=== PATIENT | male | born 1995 | race African-American/Black ===

== ENCOUNTER 2020-02-12 12:51 | Emergency (ER) | payer OTHER, SELFPAY ==
[2020-02-12 13:07] LABS: #Basophils 0.1 thou/uL (0.0-0.2); #Eosinphils 0.1 thou/uL (0.0-0.7); #Lymphocytes 3.5 thou/uL (1.20-3.40); #Monocytes 0.7 thou/uL (0.11-0.59); #Neutrophils 3.7 thou/uL (1.40-6.50); %Basophils 1.4 % (0.0-1.0); %Eosinophils 1.2 % (0.0-10.0); %Lymphocytes 42.9 % (21.0-51.0); %Monocytes 9.1 % (0.0-10.0); %Neutrophils 45.4 % (42.0-75.0); Hemoglobin 15.1 g/dL (14.0-18.0); Mean Corpuscular HGB CONC 33.3 g/dL (32.0-36.0); Mean Corpuscular Hemoglobin 28.7 pg (27.0-31.0); Mean Corpuscular Volume 86.3 fL (78.0-98.0); Platelet Count 258 thou/uL (130-400); RBC Distribution Width 12.1 % (11.5-14.5); Red Blood Cell (RBC) Count 5.25 mill/uL (4.70-6.10); White Blood Cell (WBC) Count 8.1 thou/uL (4.8-10.8)
--- NOTE | 2020-02-12 13:13 | RAD ---
Supine frontal chest radiograph: 02/12/2020 COMPARISON: None HISTORY: Injury, trauma, pain FINDINGS: Supine imaging is provided, limiting assessment for pneumothorax and pleural fluid. Heart a nd mediastinal contours appear grossly unremarkable. IMPRESSION: No radiographic evidence of acute cardiopulmonary disease.
--- NOTE | 2020-02-12 13:23 | CT ---
CT BRAIN NONCONTRAST: DATE: 02/12/2020 HISTORY: 24-year-old male status post acute blunt trauma to the head FINDINGS: There is no evidence of acute intra-axial or extra-axial hemorrhage. There is no midline shift or any other mass effect. There is no extra-axial fluid collection. The ventricles are normal in size and configuration. The tympanomastoid cavities, and the upper portions of the paranasal sinuses included in these images, are grossly clear. Calvarium is intact. IMPRESSION: Normal.
--- NOTE | 2020-02-12 13:26 | CT ---
CT CERVICAL SPINE NONCONTRAST: DATE: 02/12/2020 HISTORY: cervical trauma: 24-year-old male with acute traumatic paralysis after blunt trauma. FINDINGS: Alignment is normal. Vertebral body heights are maintained. No prevertebral soft tissue swelling. No perched or jumped facets. No significant degenerative disc disease or significant degenerative facet disease identified. No fracture or any other major osseous abnormality. There is a tiny focal c alcification of the left ligamentum flavum at C7-T1, which should not be mistaken for an avulsion or chip fracture. IMPRESSION: Essentially normal.
--- NOTE | 2020-02-12 13:28 | CT ---
CT thoracic spine noncontrast: 02/12/2020 HISTORY: 24-year-old male with acute traumatic paralysis after blunt trauma. FINDINGS: Vertebral body heights are maintained. No fracture or any other osseous abnormality. No central spina l canal stenosis. No pleural effusion. Perivertebral spaces are unremarkable. IMPRESSION: Normal
--- NOTE | 2020-02-12 13:33 | CT ---
CT LUMBAR SPINE noncontrast: DATE: 02/12/2020 HISTORY: 24-year-old male with acute traumatic paralysis after blunt trauma Dr. Quintero gave verbal report of CTs of brain, C-spine, T-spine, and L-spine, for this level 2 trauma ca se to nurse Olive Smith, who was instructed to notify Dr. Wilson of the ER 02/12/2020 FINDINGS: There are 5 lumbar-type vertebrae. Alignment is normal. Vertebral body heights and disc spaces are ma intained. There is no evidence of fracture, significant osteophytes, pars interarticularis defect, or any other focal osseous abnormality. No central spinal canal stenosis or significant neural forami nal stenosis identified at any level. No large disc herniation. Perivertebral spaces are normal. Stomach is filled with material and is distended, only partially visualized. IMPRESSION: 1. Normal lumbar spine. 2. Gastric distention
[2020-02-12 13:35] LABS: ALT (SGPT) 20 U/L (8-55); AST (SGOT) 27 U/L (5-34); Albumin 4.3 g/dL (3.5-5.0); Alcohol Less than 10 mg/dL (Less than 10); Alkaline Phosphatase 79 U/L (40-110); Anion Gap 16 mmol/L (10-20); BUN (Urea Nitrogen) 17 mg/dL (8.9-20.6); Bilirubin, Total 0.6 mg/dL (0.2-1.2); Calc. Creatinine Clearance 0 mL/min (70-130); Calcium 9.4 mg/dL (7.8-10.44); Carbon Dioxide 23 mmol/L (22-29); Chloride 103 mmol/L (98-107); Globulin 3.1 g/dL (2.4-3.5); Glucose 77 mg/dL (70-105); Potassium 4.1 mmol/L (3.5-5.1); Protein, Total 7.4 g/dL (6.0-8.3); Sodium 138 mmol/L (136-145)
--- NOTE | 2020-02-12 16:18 | MRI ---
Exam: MRI cervical spine without contrast HISTORY: Trauma. Similar fell on patient. Acute posttraumatic paralysis.. COMPARISON: None Correlation: CT cervical spine 02/12/2020 FINDINGS: Straightening of normal cervical lordosis is presumed to be due to patient position. There is no sig nificant STIR hyperintensity to suggest ligamentous injury or vertebral body edema Visualized brain parenchyma, cervicomedullary junction, cervical cord and the upper thoracic cord hav e a normal size and signal intensity. C2-C3: Adequate disc hydration. No posterior disc abnormality. No significant central canal stenosis or significant neural foraminal narrowing C3-C4: Adequate disc hydration. No posterior disc abnormality. No significant central canal stenosis or significant neural foraminal narrowing C4-C5: Adequate disc hydration. No posterior disc abnormality. No significant central canal stenosis or significant neural foraminal narrowing C5-C6: Adequate disc hydration. No posterior disc abnormality. No significant central canal stenosis or significant neural foraminal narrowing. There is a 0.1 cm hyperintensity along the central aspect of the cord, compatible with a small syrinx. No cord expansion or cord C6-C7: Adequate disc hydration. No significant central canal stenosis or significant neural foraminal narrowing. Central syrinx is noted. C7-T1: Adequate disc hydration. No significant central canal stenosis or significant neural foraminal narrowing. Syrinx is not as evident. IMPRESSION: 1. No evidence of fracture or ligamentous injury 2. Appropriate signal intensity visualized brain parenchyma and spinal cord. No evidence of cord cont usion or cord hemorrhage. 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
--- NOTE | 2020-02-12 16:23 | MRI ---
MRI thoracic spine noncontrast: 02/12/2020 HISTORY: 24-year-old male with acute, traumatic paralysis from neck on down. FINDINGS: There is significant motion artifact degrading all of the images, which makes it difficult to evaluat e for cord edema or subtle cord hemorrhage. There may be mild dilation of the central canal of the spinal cord (minimal hydromyelia). There is no extrinsic cord compression. No disc herniation. Bone m arrow signal is normal. Alignment is normal. Vertebral body heights are maintained. No high-grade neural foraminal stenosis. IMPRESSION: 1.) Limited, suboptimal study due to significant patient motion, making it difficult to evaluate for intramedullary cord signal abnormality. 2) minimal hydromyelia, unlikely to be causing the patient's symptoms 3) otherwise no abnormality identified
--- NOTE | 2020-02-12 16:28 | MRI ---
MRI lumbar spine without contrast: 02/12/2020 HISTORY: Paralysis, trauma TECHNIQUE: Multiplanar multisequence MR imaging of the lumbar spine obtained without contrast FINDINGS: The sagittal STIR imaging demonstrates no focal area of osseous marrow edema. On the basis of 5 lumbar type vertebral bodies, the conus medullaris terminates at T12-L1 level. T12-L1: No central canal or neural foraminal stenosis. L1-2: No central canal or neural foraminal stenosis. L2-3: No central canal or neural foraminal stenosis. L3-4: No central canal or neural foraminal stenosis. L4-5: No central canal or neural foraminal stenosis. L5-S1: No central canal or neural foraminal stenosis. Intervertebral disc height and signal intensity appears normal at all levels within the lumbar spine. IMPRESSION: No significant central canal or neural foraminal stenosis.
== END 2020-02-12 18:00 | disposition home or self-care (01) ==
LOC: EEVIPCON 12:51 → ERS 12:51
DX: S06.0X9A Concussion with loss of consciousness of unspecified duration, initial encounter (principal); S01.01XA Laceration without foreign body of scalp, initial encounter; S40.211A Abrasion of right shoulder, initial encounter; G81.00 Flaccid hemiplegia affecting unspecified side; R29.818 Other symptoms and signs involving the nervous system; R26.9 Unspecified abnormalities of gait and mobility; W22.8XXA Striking against or struck by other objects, initial encounter
CPT/HCPCS: 12001; 70450; 71045; 72125; 72128; 72131; 72141; 72146; 72148; 80053; 80307; 85025; G0390